=== PATIENT | male | born 2000 | race African-American/Black ===

== ENCOUNTER 2023-09-21 07:26 | Emergency (ER) | payer BC ==
[2023-09-21] MEDS ORDERED: IBUPROFEN 400 MG TAB ONE (07:54)
--- NOTE | 2023-09-21 08:30 | RAD REPORT ---
EXAM DESCRIPTION: RAD - Ankle Left 3 View -09/21/2023 8:03 am CLINICAL HISTORY: Left ankle pain status post injury FINDINGS: No fracture or dislocation is seen. Soft tissue swelling
--- NOTE | 2023-09-21 08:32 | ER ---
Nurse's Notes [facility] Name: Ezequiel Jama Age: 23 yrs Sex: Male : 2000 Arrival Date: 09/21/2023 Time: 07:26 Bed 10 Private MD: Diagnosis: Sprain of ankle;Achilles tendinitis Presentation: 09/20 08:30 Chief complaint: Patient states: Slipped on a water puddle and rolled L ankle. ph 08:43 Coronavirus screen: Vaccine status: Patient reports being unvaccinated. Ebola Screen: ph No symptoms or risks identified at this time. Initial Sepsis Screen: Does the patient meet any 2 criteria? No. Patient's initial sepsis screen is negative. Does the patient have a suspected source of infection? No. Patient's initial sepsis screen is negative. Risk Assessment: Do you want to hurt yourself or someone else? Patient reports no desire to harm self or others. Onset of symptoms was September 21, 2023. 08:43 Method Of Arrival: Wheelchair ph 08:43 Acuity: DOMINGA 4 ph - Immunization history:: Adult Immunizations up to date. - Infectious Disease History:: Denies. - Family history:: not pertinent. Screenin:42 [facility] ED Fall Risk Assessment (Adult) History of falling in the last 3 months, ph including since admission Yes- single mechanical fall (1 pt) Confusion or Disorientation No (0 pts) Intoxicated or Sedated No (0 pts) Impaired Gait Yes (1 pt) Mobility Assist Device Used No (0 pt) Altered Elimination No (0 pt) Score/Fall Risk Level 0 - 2 = Low Risk Oriented to surroundings, Maintained a safe environment, Hourly rounding (assess needs \T\ fall precautionary measures) done. Abuse screen: Denies threats or abuse. Denies injuries from another. Nutritional screening: No deficits noted. Tuberculosis screening: No symptoms or risk factors identified. Assessment: 09:02 General: Appears in no apparent distress. comfortable, Behavior is calm, cooperative. ph Pain: Complains of pain in left medial ankle and left lateral ankle. Neuro: Level of Consciousness is awake, alert, obeys commands, Oriented to person, place, time, situation. Cardiovascular: Capillary refill < 3 seconds in bilateral fingers Patient's skin is warm and dry. Respiratory: Airway is patent Respiratory effort is even, unlabored. Musculoskeletal: Circulation, motion, and sensation intact. Range of motion: intact in all extremities. Vital Signs: 08:30 BP 132 / 78; Pulse 89; Resp 18; Temp 98; Pulse Ox 99% on R/A; ph Jonathan Coma Score: 07:48 Eye Response: spontaneous(4). Motor Response: obeys commands(6). Verbal Response: eric oriented(5). Total: 15. ED Course: 07:35 Patient arrived in ED. im 07:36 Arm band placed on Patient placed in an exam room, on a stretcher. ll1 07:45 Jeff Armas MD is Attending Physician. eric 07:45 Zamzam Lange, RN is Primary Nurse. ph 08:04 Ankle Left 3 View XRAY In Process Unspecified. EDMS 08:31 Curtis Wiley MD is Referral Physician. eric 08:43 Triage completed. ph 08:43 Patient has correct armband on for positive identification. Bed in low position. Call ph light in reach. Side rails up X 1. 09:03 No provider procedures requiring assistance completed. Patient did not have IV access ph during this emergency room visit. Crutch training done. Air stirrup applied to left ankle. Administered Medications: 09:02 Drug: Ibuprofen PO 800 mg PO once Route: PO; ph 09:03 Follow up: Response: No adverse reaction ph Medication: 08:43 VIS not applicable for this client. ph Outcome: 08:31 Discharge ordered by . eric 09:04 Discharged to home ambulatory, with crutches, ph 09:04 Condition: good 09:04 Discharge instructions given to patient, Instructed on discharge instructions, follow up and referral plans. medication usage, Demonstrated understanding of instructions, follow-up care, medications, Prescriptions given X 1, 09:04 Patient left the ED. ph Signatures: Dispatcher [employer] EDCO Jeff Armas MD MD cha Hall, Patricia, RN RN ph Kyle Brooks RN RN [facility] Jessi Metcalf
--- NOTE | 2023-09-21 08:32 | EDPHYS ---
Physician Documentation [facility] Name: Ezequiel Jama Age: 23 yrs Sex: Male : 2000 Arrival Date: 09/21/2023 Time: 07:26 Bed 10 Private MD: ED Physician Jeff Armas HPI: 09/20 07:48 This 23 yrs old Male presents to ER via Unassigned with complaints of Ankle eric Injury. 07:48 The patient presents with decreased range of motion, pain, that is acute. The eric complaints affect the left ankle. Onset: The symptoms/episode began/occurred 1 day(s) ago. Context: resulted from the patient falling, the patient tripping, The mechanism of injury is unknown. The patient can fully bear weight on the affected extremity. Associated signs and symptoms: The patient has no apparent associated signs or symptoms. Modifying factors: The symptoms are alleviated by elevation of extremity, the symptoms are aggravated by nothing. Severity of symptoms: At their worst the symptoms were mild, in the emergency department the symptoms are unchanged. The patient has not experienced similar symptoms in the past. - Immunization history:: Adult Immunizations up to date. - Infectious Disease History:: Denies. - Family history:: not pertinent. ROS: 07:48 Constitutional: Negative for fever, chills, and weight loss, Eyes: Negative for injury, eric pain, redness, and discharge, ENT: Negative for injury, pain, and discharge, Neck: Negative for injury, pain, and swelling, Cardiovascular: Negative for chest pain, palpitations, and edema, Respiratory: Negative for shortness of breath, cough, wheezing, and pleuritic chest pain, Abdomen/GI: Negative for abdominal pain, nausea, vomiting, diarrhea, and constipation, Back: Negative for injury and pain, : Negative for injury, bleeding, discharge, and swelling, Skin: Negative for injury, rash, and discoloration, Neuro: Negative for headache, weakness, numbness, tingling, and seizure, Psych: Negative for depression, anxiety, suicide ideation, homicidal ideation, and hallucinations, Allergy/Immunology: Negative for hives, rash, and allergies, Endocrine: Negative for neck swelling, polydipsia, polyuria, polyphagia, and marked weight changes, Hematologic/Lymphatic: Negative for swollen nodes, abnormal bleeding, and unusual bruising, 07:48 MS/extremity: Positive for decreased range of motion, pain, tenderness, of the left lateral ankle, left Achilles, left medial ankle and anterior aspect of left ankle, Exam: 07:48 Constitutional: This is a well developed, well nourished patient who is awake, alert, eric and in no acute distress. Head/Face: Normocephalic, atraumatic. Eyes: Pupils equal round and reactive to light, extra-ocular motions intact. Lids and lashes normal. Conjunctiva and sclera are non-icteric and not injected. Cornea within normal limits. Periorbital areas with no swelling, redness, or edema. ENT: Nares patent. No nasal discharge, no septal abnormalities noted. Tympanic membranes are normal and external auditory canals are clear. Oropharynx with no redness, swelling, or masses, exudates, or evidence of obstruction, uvula midline. Mucous membranes moist. Neck: Trachea midline, no thyromegaly or masses palpated, and no cervical lymphadenopathy. Supple, full range of motion without nuchal rigidity, or vertebral point tenderness. No Meningismus. Chest/axilla: Normal chest wall appearance and motion. Nontender with no deformity. No lesions are appreciated. Cardiovascular: Regular rate and rhythm with a normal S1 and S2. No gallops, murmurs, or rubs. Normal PMI, no JVD. No pulse deficits. Respiratory: Lungs have equal breath sounds bilaterally, clear to auscultation and percussion. No rales, rhonchi or wheezes noted. No increased work of breathing, no retractions or nasal flaring. Abdomen/GI: Soft, non-tender, with normal bowel sounds. No distension or tympany. No guarding or rebound. No evidence of tenderness throughout. Back: No spinal tenderness. No costovertebral tenderness. Full range of motion. Male : Normal genitalia with no discharge or lesions. Skin: Warm, dry with normal turgor. Normal color with no rashes, no lesions, and no evidence of cellulitis. Neuro: Awake and alert, GCS 15, oriented to person, place, time, and situation. Cranial nerves II-XII grossly intact. Motor strength 5/5 in all extremities. Sensory grossly intact. Cerebellar exam normal. Normal gait. Psych: Awake, alert, with orientation to person, place and time. Behavior, mood, and affect are within normal limits. 07:48 Musculoskeletal/extremity: ROM: full active range of motion, full passive range of motion, Circulation is intact in all extremities. Sensation intact. Compartment Syndrome exam of affected extremity: is normal. Weight bearing: able to fully bear weight, Tendon exam: specific tendon testing normal through active and passive range of motion DVT Exam: negative Homans' sign noted on exam, no appreciated bluish discoloration, no erythema, no increased warmth, pain, swelling, tenderness, Vital Signs: 08:30 BP 132 / 78; Pulse 89; Resp 18; Temp 98; Pulse Ox 99% on R/A; ph [place] Coma Score: 07:48 Eye Response: spontaneous(4). Motor Response: obeys commands(6). Verbal Response: eric oriented(5). Total: 15. MDM: 07:45 Patient medically screened. eric 07:52 Differential diagnosis: fracture. Data reviewed: vital signs, nurses notes, radiologic eric studies, plain films. Consideration of Admission/Observation Escalation of care including admission/observation considered. I considered the following discharge prescriptions or medication management in the emergency department Medications were administered in the Emergency Department. See MAR. Independent interpretation of the following test(s) in the Emergency Department X-Ray: My interpretation is left ankle. Test considered but Not performed: Labs: no labs. Historians other than the Patient: pt well informed. 09/20 07:48 Order name: Ankle Left 3 View XRAY; Complete Time: 08:31 [facility] 09/20 07:48 Order name: Aircast Ankle Splint; Complete Time: 09:02 [facility] 09/20 07:55 Order name: Crutches; Complete Time: 09:02 eric Administered Medications: 09:02 Drug: Ibuprofen PO 800 mg PO once Route: PO; ph 09:03 Follow up: Response: No adverse reaction ph Disposition Summary: 09/21/23 08:31 Discharge Ordered Notes: Location: Home eric Problem: new eric Symptoms: have improved reic Condition: Stable eric Diagnosis - Sprain of ankle eric - Achilles tendinitis eric Followup: eric - With: Private Physician - When: 2 - 3 days - Reason: Recheck today's complaints, Continuance of care, Re-evaluation by your physician Followup: eric - With: Curtis Wiley MD - When: 2 - 3 days - Reason: Recheck today's complaints, Re-evaluation by your physician Discharge Instructions: - Discharge Summary Sheet eric - Ankle Sprain eric - RICE Therapy for Routine Care of Injuries eric - RICE Therapy for Routine Care of Injuries, [id number] eric - Ankle Sprain, [id number] eric - Ankle Pain eric Forms: - Medication Reconciliation Form eric - Antibiotic Education eric - Prescription Opioid Use eric - Patient Portal Instructions eric - Leadership Thank You Letter eric - Work release form ll1 Prescriptions: - Diclofenac Sodium 75 mg Oral Tablet Sustained Release - take 1 tablet ORAL route 2 times per day; 30 tablet; Refills: 0, Product eric Selection Permitted Signatures: Dispatcher [employer] EDJeff Hoffman MD MD cha Hall, Patricia RN RN Kyle Sargent RN RN ll1
[2023-09-21 09:17] VITALS: BP 132/78; TEMP 98; O2SAT 99
== END 2023-09-21 09:04 | disposition home or self-care (01) ==
LOC: ER 07:26
DX: S93.402A Sprain of unspecified ligament of left ankle, initial encounter (principal); M76.62 Achilles tendinitis, left leg
CPT/HCPCS: 99283